=== PATIENT | male | born 1970 | race Two or more races ===

== ENCOUNTER 2019-03-10 10:30 | Emergency (ER) | payer MEDICAID ==
[~2019-03-10] VITALS: Ht 172.7 cm; Wt 95.3 kg
[2019-03-10 11:45] LABS: Basophils # (auto) 0.1 uL; Basophils % (auto) 1.4 % (0.0-2.0); Eosinophils # (auto) 0.1 uL; Eosinophils % (auto) 1.6 % (0.0-7.0); Hematocrit 46.3 % (41.0-53.0); Lymphocytes % (auto) 29.2 % (10.0-50.0); Mean Corpuscular Hemoglobin 30.1 pg (28.0-32.0); Mean Corpuscular Hgb Conc. 34.6 g/dL (32.0-36.0); Monocytes # (auto) 0.9 uL; Monocytes % (auto) 12.5 % (0.0-12.0); Neutrophils # (auto) 3.8 uL; Neutrophils % (auto) 55.3 % (37.0-80.0); Nucleated Red Blood Cells % 0.1 %; Platelet Count (auto) 192 10^3/uL (140-450); Red Blood Cells 5.32 10^6/uL (4.5-5.90); Red Cell Distribution Width 16.1 % (11.8-14.3); White Blood Cell 6.8 10^3/uL (4.4-10.8)
[2019-03-10 12:03] LABS: INR 0.9 (0.9-1.15); Partial Thromboplastin Time 28.7 sec (23.64-32.05)
[2019-03-10 12:10] LABS: Albumin 3.3 g/dL (3.4-5.0); Potassium 4.1 mmol/L (3.5-5.1)
[2019-03-10 12:14] LABS: Bilirubin, Total 2.7 mg/dL (0.2-1.0); Total Protein 8.2 g/dL (6.4-8.2)
[2019-03-10 13:19] LABS: BUN/Creatinine Ratio 16.5
[2019-03-10 13:34] VITALS: BP 127/84
[2019-03-10] MEDS ORDERED: ASPI-404 PO (15:08)
[2019-03-10] MEDS ORDERED: CARV3.1240 PO (15:08)
[2019-03-10] MEDS ORDERED: LISI-275 PO (15:08)
[2019-03-10 16:24] LABS: Urine Bacteria NONE SEEN /hpf (None Seen); Urine Blood Negative /uL (Negative); Urine Mucus FEW (None Seen); Urine Specific Gravity 1.024 (1.001-1.035); Urine WBC <1 /hpf (0 - 3)
== END 2019-03-10 17:24 | disposition home or self-care (01) ==
LOC: ER 10:30
DX: K29.00 Acute gastritis without bleeding (principal); I11.0 Hypertensive heart disease with heart failure; I50.9 Heart failure, unspecified; F17.210 Nicotine dependence, cigarettes, uncomplicated; Z79.82 Long term (current) use of aspirin; Z79.899 Other long term (current) drug therapy
CPT/HCPCS: 36415; 74176; 80053; 81001; 83690; 85025; 85610; 85730; 93005